=== PATIENT | male | born 1985 | race Caucasian/White ===

== ENCOUNTER 2017-04-05 15:42 | Observation (INO) | payer OTHER ==
[~2017-04-05] VITALS: Ht 185.4 cm; Wt 77.9 kg
[~2017-04-05 15:42] MED LIST: ALPR.25 PO; CYCL10 PO; DIAZ5 PO; DULO30 PO; HYDACE5 PO; IBUP800 PO; NAPR500 PO; Naprosyn500 MG PO; Norco 5-325 Ta1 EACH PO; OXYACE5T PO; PENVK500 PO; PROM25 PO; RXHYDACE PO; RXPROM25 PO; TRAM50 PO; Ultram50 MG PO
[2017-04-05 16:05] LABS: BASOPHILS ABSOLUTE AUTO 0.04 K/mm3 (0.00-0.23); BASOPHILS PERCENT AUTO 1 % (0-2); EOSINOPHILS ABSOLUTE AUTO 0.29 K/mm3 (0.00-0.68); EOSINOPHILS PERCENT AUTO 5 % (0-6); Hemoglobin 14.3 g/dL (13.5-17.5); IMMATURE GRAN ABSOLUTE AUTO 0.01 K/mm3 (0.00-0.10); IMMATURE GRAN PERCENT AUTO 0 % (0-1); LYMPHOCYTES ABSOLUTE AUTO 1.84 K/mm3 (0.84-5.20); LYMPHOCYTES PERCENT AUTO 34 % (21-46); MONOCYTES ABSOLUTE AUTO 0.51 K/mm3 (0.16-1.47); MONOCYTES PERCENT AUTO 9 % (4-13); Mean Corpuscular HGB 30.8 pg (26.0-34.0); Mean Corpuscular HGB Conc 33.3 g/dL (31.5-36.5); Mean Corpuscular Volume 93 fL (80-100); Mean Platelet Volume 8.4 fL (9.1-12.4); NEUTROPHILS ABSOLUTE AUTO 2.71 K/mm3 (1.96-9.15); NEUTROPHILS PERCENT AUTO 50 % (41-73); Platelet Count 310 K/mm3 (150-400); RDW Coefficient Variation 14.4 % (11.7-14.2); RDW Standard Deviation 49.1 fL (35.1-46.3); Red Blood Cell Count 4.65 M/mm3 (4.30-5.90)
[2017-04-05 16:32] LABS: Alanine Aminotransfer (ALT/SGP 30 U/L (12-78); Albumin, Blood 4.4 g/dL (3.4-5.0); Albumin/Globulin Ratio 1.2 (0.8-1.8); Alk Phos 112 U/L (50-136); Anion Gap 7 mmol/L (6-16); Aspartate Aminotrans (AST/SGOT 24 U/L (12-37); Bilirubin, Total 0.4 mg/dL (0.1-1.0); Blood Urea Nitrogen 21 mg/dL (8-24); Bun/Creatinine Ratio 22.7 (12.0-20.0); CO2, Blood 27 mmol/L (21-32); Chloride, Blood 104 mmol/L (98-108); Creatinine, Blood 0.92 mg/dL (0.60-1.20); Ethanol (Alcohol), Blood, Med <3 mg/dL; Free Thyroxine 1.17 ng/dL (0.70-1.60); Globulin, Blood 3.8 g/dL (2.2-4.0); Glomerular Filtration Rate >60 (60-); Glucose, Blood 89 mg/dL (70-99); Potassium, Blood 3.9 mmol/L (3.5-5.5); Salicylate <1.7 mg/dL (2.8-20.0); Sodium, Blood 138 mmol/L (136-145); Total Protein, Blood 8.2 g/dL (6.4-8.2)
[2017-04-05 16:45] LABS: Acetaminophen, Random <2.0 ug/mL (10.0-30.0)
[2017-04-05] MEDS ORDERED: SUBOXONE 2 MG-1 EACH SL (16:48)
[2017-04-05] MEDS ORDERED: TRAZ50 PO (16:49)
[2017-04-05] MEDS ORDERED: CLON.5 (16:49)
[2017-04-06 05:41] LABS: BASOPHILS ABSOLUTE AUTO 0.04 K/mm3 (0.00-0.23); BASOPHILS PERCENT AUTO 0 % (0-2); EOSINOPHILS PERCENT AUTO 3 % (0-6); Hematocrit 40.5 % (37.0-53.0); Hemoglobin 13.2 g/dL (13.5-17.5); IMMATURE GRAN ABSOLUTE AUTO 0.02 K/mm3 (0.00-0.10); IMMATURE GRAN PERCENT AUTO 0 % (0-1); LYMPHOCYTES ABSOLUTE AUTO 1.77 K/mm3 (0.84-5.20); LYMPHOCYTES PERCENT AUTO 20 % (21-46); MONOCYTES ABSOLUTE AUTO 1.14 K/mm3 (0.16-1.47); MONOCYTES PERCENT AUTO 13 % (4-13); Mean Corpuscular HGB 31.2 pg (26.0-34.0); Mean Corpuscular HGB Conc 32.6 g/dL (31.5-36.5); Mean Corpuscular Volume 96 fL (80-100); Mean Platelet Volume 8.4 fL (9.1-12.4); NEUTROPHILS PERCENT AUTO 64 % (41-73); Platelet Count 290 K/mm3 (150-400); RDW Coefficient Variation 14.6 % (11.7-14.2); RDW Standard Deviation 51.7 fL (35.1-46.3); Red Blood Cell Count 4.23 M/mm3 (4.30-5.90); White Blood Cell Count 9.07 K/mm3 (4.00-11.30)
[2017-04-06 06:01] LABS: Anion Gap 9 mmol/L (6-16); Blood Urea Nitrogen 19 mg/dL (8-24); Bun/Creatinine Ratio 25.5 (12.0-20.0); CO2, Blood 24 mmol/L (21-32); Calcium, Blood 8.2 mg/dL (8.5-10.1); Chloride, Blood 108 mmol/L (98-108); Creatinine, Blood 0.74 mg/dL (0.60-1.20); Glomerular Filtration Rate >60 (60-); Glucose, Blood 76 mg/dL (70-99); Potassium, Blood 4.2 mmol/L (3.5-5.5); Sodium, Blood 141 mmol/L (136-145)
[2018-03-03] MEDS ORDERED: Ultram50 MG PO (17:08)
== END 2017-04-06 10:20 | disposition left against medical advice (07) ==
LOC: ER 15:42 → ICUW 15:43 → PCU 15:43 → ICUW 20:03
PROVIDERS: Emergency Medicine; Internal Medicine
DX: T42.4X1A Poisoning by benzodiazepines, accidental (unintentional), initial encounter (principal); T40.4X1A Poisoning by other synthetic narcotics, accidental (unintentional), initial encounter; R40.0 Somnolence; Y92.9 Unspecified place or not applicable; F17.200 Nicotine dependence, unspecified, uncomplicated; Z79.899 Other long term (current) drug therapy
CPT/HCPCS: 36415; 80048; 80053; 84439; 84443; 85025; 93005; 93010; 96360; 96361; 96365; 96375; 99285; C9113; G0378; G0480; J3010; J7030

== ENCOUNTER 2017-08-07 18:39 | Emergency (ER) | payer OTHER ==
[~2017-08-07] VITALS: Ht 185.4 cm; Wt 81.7 kg
[~2017-08-07 18:39] MED LIST changes: +CLON.5; +SUBOXONE 2 MG-1 EACH SL; +TRAZ50 PO
== END 2017-08-07 21:09 | disposition left against medical advice (07) ==
LOC: ER 18:39
DX: Z53.21 Procedure and treatment not carried out due to patient leaving prior to being seen by health care provider (principal)

== ENCOUNTER 2017-08-10 15:59 | Emergency (ER) | payer OTHER ==
[~2017-08-10] VITALS: Ht 185.4 cm; Wt 81.7 kg
[2017-08-10] MEDS ORDERED: IBUP600 PO (16:34)
== END 2017-08-10 16:47 | disposition home or self-care (01) ==
LOC: ER 15:59
DX: M79.641 Pain in right hand (principal); X50.0XXA Overexertion from strenuous movement or load, initial encounter; Z79.899 Other long term (current) drug therapy; F17.200 Nicotine dependence, unspecified, uncomplicated
CPT/HCPCS: 73130; 99283

== ENCOUNTER 2018-04-14 14:02 | Emergency (ER) | payer OTHER ==
[~2018-04-14] VITALS: Ht 185.4 cm; Wt 77.1 kg
[~2018-04-14 14:02] MED LIST changes: +IBUP600 PO
[2018-04-14] MEDS ORDERED: Cyclobenzaprine5 MG PO (15:30)
[2018-04-14] MEDS ORDERED: Ultram50 MG PO (15:30)
== END 2018-04-14 15:36 | disposition home or self-care (01) ==
LOC: ER 14:02
DX: G89.21 Chronic pain due to trauma (principal); S21.201D Unspecified open wound of right back wall of thorax without penetration into thoracic cavity, subsequent encounter; M62.830 Muscle spasm of back; S21.101D Unspecified open wound of right front wall of thorax without penetration into thoracic cavity, subsequent encounter; W34.00XD Accidental discharge from unspecified firearms or gun, subsequent encounter
CPT/HCPCS: 99284

== ENCOUNTER 2018-06-08 10:40 | Emergency (ER) | payer OTHER ==
[~2018-06-08] VITALS: Ht 185.4 cm; Wt 90.7 kg
[~2018-06-08 10:40] MED LIST changes: +Cyclobenzaprine5 MG PO
[2018-06-08] MEDS ORDERED: BENZ100A PO (11:44)
[2018-06-08] MEDS ORDERED: PSEU120ER PO (11:44)
== END 2018-06-08 11:48 | disposition home or self-care (01) ==
LOC: ER 10:40
DX: J06.9 Acute upper respiratory infection, unspecified (principal); F17.210 Nicotine dependence, cigarettes, uncomplicated
CPT/HCPCS: 99283

== ENCOUNTER 2018-08-15 16:31 | Emergency (ER) | payer OTHER ==
[~2018-08-15] VITALS: Ht 182.9 cm; Wt 83.9 kg
[~2018-08-15 16:31] MED LIST changes: +BENZ100A PO; +PSEU120ER PO
[2018-08-15] MEDS ORDERED: Keflex500 MG PO (17:21)
[2018-08-15] MEDS ORDERED: Bactrim Ds Tab1 EACH PO (17:21)
== END 2018-08-15 17:30 | disposition home or self-care (01) ==
LOC: ER 16:31
DX: L03.116 Cellulitis of left lower limb (principal); L02.416 Cutaneous abscess of left lower limb; F17.210 Nicotine dependence, cigarettes, uncomplicated
CPT/HCPCS: 99282

== ENCOUNTER 2018-09-18 18:16 | Emergency (ER) | payer OTHER ==
[~2018-09-18] VITALS: Ht 185.4 cm; Wt 77.1 kg
[~2018-09-18 18:16] MED LIST changes: +Bactrim Ds Tab1 EACH PO; +Keflex500 MG PO
== END 2018-09-18 20:02 | disposition left against medical advice (07) ==
LOC: ER 18:16
DX: S70.02XD Contusion of left hip, subsequent encounter (principal); Z53.21 Procedure and treatment not carried out due to patient leaving prior to being seen by health care provider; F17.210 Nicotine dependence, cigarettes, uncomplicated; X58.XXXD Exposure to other specified factors, subsequent encounter
CPT/HCPCS: 99281

== ENCOUNTER 2018-10-24 19:09 | Emergency (ER) | payer OTHER ==
[~2018-10-24] VITALS: Ht 185.4 cm; Wt 81.7 kg
[2018-10-24] MEDS ORDERED: Cephalexin500 M1 PO (19:59)
[2018-10-24] MEDS ORDERED: Bactrim Ds Tab1 EACH PO (19:59)
== END 2018-10-24 20:04 | disposition home or self-care (01) ==
LOC: ER 19:09
DX: L02.11 Cutaneous abscess of neck (principal); L03.221 Cellulitis of neck; L73.9 Follicular disorder, unspecified; F17.210 Nicotine dependence, cigarettes, uncomplicated
CPT/HCPCS: 10060; 99282-25; J1885

== ENCOUNTER 2019-05-03 20:47 | Emergency (ER) | payer SELFPAY ==
[~2019-05-03] VITALS: Ht 185.4 cm; Wt 83.9 kg
[~2019-05-03 20:47] MED LIST changes: +Cephalexin500 M1 PO
[2019-05-03] MEDS ORDERED: KETO10 PO (22:40)
== END 2019-05-03 22:48 | disposition home or self-care (01) ==
LOC: ER 20:47
DX: M67.432 Ganglion, left wrist (principal); F17.210 Nicotine dependence, cigarettes, uncomplicated
CPT/HCPCS: 29125; 73110; 99283-25

== ENCOUNTER 2024-05-09 12:01 | Emergency (ER) | payer OTHER ==
[~2024-05-09] VITALS: Ht 185.4 cm; Wt 90.7 kg
[~2024-05-09 12:01] MED LIST changes: +KETO10 PO
[2024-05-09 12:13] VITALS: BP 107/95
[2024-05-09] MEDS ORDERED: Cephalexin500 M1 PO (13:15)
== END 2024-05-09 13:33 | disposition home or self-care (01) ==
LOC: ER 12:01
DX: L03.211 Cellulitis of face (principal); F17.210 Nicotine dependence, cigarettes, uncomplicated
CPT/HCPCS: 99282

== ENCOUNTER 2024-07-03 19:51 | Emergency (ER) | payer OTHER ==
[~2024-07-03] VITALS: Ht 170.2 cm; Wt 79.4 kg
[2024-07-03 19:59] VITALS: BP 145/95
== END 2024-07-03 21:28 | disposition left against medical advice (07) ==
LOC: ER 19:51
DX: R22.0 Localized swelling, mass and lump, head (principal); Z53.29 Procedure and treatment not carried out because of patient's decision for other reasons
CPT/HCPCS: 99281

== ENCOUNTER 2024-07-09 00:07 | Emergency (ER) | payer OTHER ==
[~2024-07-09] VITALS: Ht 185.4 cm; Wt 86.2 kg
[2024-07-09] MEDS ORDERED: SULTRIDS PO (03:59)
[2024-07-09] MEDS ORDERED: CEPH500 PO (03:59)
[2024-07-09] MEDS ORDERED: Trimethoprim/Sulfamethoxazole DS Tab PO ONE (04:00)
[2024-07-09] MEDS ORDERED: Cephalexin Monohydrate 500 MG Cap PO ONE (04:00)
[2024-07-09 04:05] VITALS: BP 113/63
[2024-07-09] MEDS ORDERED: OxyCODONE HCL 5 MG TAB PO ONE (04:05)
== END 2024-07-09 04:10 | disposition home or self-care (01) ==
LOC: ER 00:07
DX: L02.01 Cutaneous abscess of face (principal); F17.210 Nicotine dependence, cigarettes, uncomplicated
CPT/HCPCS: 10160; 99283-25; A9270

== ENCOUNTER 2025-01-23 17:53 | Emergency (ER) | payer OTHER ==
[~2025-01-23] VITALS: Ht 182.9 cm; Wt 90.7 kg
[~2025-01-23 17:53] MED LIST changes: +CEPH500 PO; +SULTRIDS PO
[2025-01-23 19:25] LABS: BASOPHILS ABSOLUTE AUTO 0.04 K/mm3 (0.00-0.23); BASOPHILS PERCENT AUTO 1 % (0-2); EOSINOPHILS ABSOLUTE AUTO 0.21 K/mm3 (0.00-0.68); EOSINOPHILS PERCENT AUTO 3 % (0-6); Hematocrit 33.9 % (37.0-53.0); Hemoglobin 11.3 g/dL (13.5-17.5); IMMATURE GRAN ABSOLUTE AUTO 0.02 K/mm3 (0.00-0.10); IMMATURE GRAN PERCENT AUTO 0 % (0-1); LYMPHOCYTES ABSOLUTE AUTO 1.42 K/mm3 (0.84-5.20); LYMPHOCYTES PERCENT AUTO 17 % (21-46); MONOCYTES ABSOLUTE AUTO 1.03 K/mm3 (0.16-1.47); MONOCYTES PERCENT AUTO 13 % (4-13); Mean Corpuscular HGB Conc 33.3 g/dL (31.5-36.5); Mean Corpuscular Volume 91 fL (80-100); NEUTROPHILS ABSOLUTE AUTO 5.54 K/mm3 (1.96-9.15); NEUTROPHILS PERCENT AUTO 67 % (41-73); NRBC ABSOLUTE 0.00 K/mm3 (0.00-0.02); NRBC Auto 0.0 /100 WBC (0.0-0.2); Platelet Count 343 K/mm3 (150-400); RDW Coefficient Variation 14.4 % (11.7-14.2); RDW Standard Deviation 47.9 fL (35.1-46.3)
[2025-01-23] MEDS ORDERED: Morphine Sulfate 4 MG/1 ML Injection IV ONE (22:00)
[2025-01-23] MEDS ORDERED: CefTRIAXone Sodium 1,000 MG in NS 100 ML IV ONE (23:00)
[2025-01-23 23:27] LABS: BODY FLUID RBC 0.323 M/mm3 (0-0)
[2025-01-23 23:31] LABS: Glucose, Body Fluid 20 mg/dL
[2025-01-23 23:33] LABS: RBC Count, Synovial Fluid 323000 /mm3 (0-0); WBC Count, Synovial Fluid 1011 /mm3 (0-180)
[2025-01-23 23:43] LABS: Alanine Aminotransfer (ALT/SGP 32.0 U/L (12-78); Albumin, Blood 3.8 g/dL (3.4-5.0); Albumin/Globulin Ratio 1.1 (0.8-1.8); Anion Gap 6.0 mmol/L (3-11); Aspartate Aminotrans (AST/SGOT 24.0 U/L (12-37); Bilirubin, Total 0.5 mg/dL (0.1-1.0); Blood Urea Nitrogen 16.0 mg/dL (8-24); C-Reactive Protein, High Sens. 62.9 mg/L (0.000-3.000); CO2, Blood 31.0 mmol/L (21-32); Calcium, Blood 9.2 mg/dL (8.5-10.1); Chloride, Blood 99.0 mmol/L (98-108); Creatinine, Blood 0.76 mg/dL (0.60-1.20); Globulin, Blood 3.6 g/dL (2.2-4.0); Glucose, Blood 94.0 mg/dL (70-99); Potassium, Blood 4.4 mmol/L (3.5-5.5); Sodium, Blood 132.0 mmol/L (136-145); Total Protein, Blood 7.4 g/dL (6.4-8.2)
[2025-01-24 00:15] VITALS: BP 129/85
[2025-01-24 00:31] LABS: Appearance, Synovial Fluid Hazy (Clear); Color, Synovial Fluid Red (None-P Yel); Lymphs, Synovial Fluid 30 % (0-15); Neutrophils, Synovial Fluid 70 % (0-24)
[2025-01-24] MEDS ORDERED: CEPH500 PO (00:54)
== END 2025-01-24 01:07 | disposition home or self-care (01) ==
LOC: ER 17:53
PROVIDERS: Student in an Organized Health Care Education/Training Program
DX: L03.113 Cellulitis of right upper limb (principal); Z79.899 Other long term (current) drug therapy; F17.210 Nicotine dependence, cigarettes, uncomplicated
CPT/HCPCS: 20605; 36415; 73080; 80053; 82945; 83605; 84157; 85025; 85651; 86141; 86701; 86702; 87040; 87070; 87075; 87077; 87186; 87205; 89051; 96365; 99284-25; J0696